=== PATIENT | female | born 1980 | race Caucasian/White ===

== ENCOUNTER 2020-08-11 12:27 | Outpatient (CLI) | payer OTHER, SELFPAY ==
--- NOTE | ~2020-08-11 | US_ITS ---
EXAMINATION: US arterial ankle brachial ind DATE: 08/11/2020 13:29 INDICATION: Patient feels like legs are giving any blood flow. TECHNIQUE: Segmental pressures and plethysmographic and Doppler waveforms of the brachial and lower e xtremity arteries were obtained. COMPARISON: None. FINDINGS: Right and left brachial artery pressures of 121 mm Hg and lower-outer 27 mm Hg, respectively, are con cordant (normal difference <= 30 mmHg). The right ankle-brachial index (NATALY) is 1.13 (normal >= 0.9-1.0). The right great toe-brachial index (TBI) is 0.86 (normal >= 0.65). Arterial Doppler waveforms are triphasic. The left NATALY is 1.15. The left TBI is 0.92. Arterial Doppler waveforms are triphasic at the posterior tibial artery and biphasic at the dorsalis pedis artery. IMPRESSION: Bilateral normal NATALY and TBI Reviewed, dictated and finalized at Location A. Reviewed, dictated and finalized at location A.
--- NOTE | ~2020-08-11 | US_ITS ---
EXAMINATION: US venous doppler [facility] DATE: 08/11/2020 13:28 INDICATION: Lower limb swelling. TECHNIQUE: Grayscale ultrasound images without and with compression and Doppler ultrasound images of the bilateral lower extremity veins were obtained. COMPARISON: None. FINDINGS: The visualized portions of right common femoral vein, profunda (deep) femoral vein, femoral vein, pop liteal vein, peroneal veins, posterior tibial veins, and greater saphenous vein outflow are patent. The visualized portions of left common femoral vein, profunda femoral vein, femoral vein, popliteal v ein, peroneal veins, posterior tibial veins, and greater saphenous vein outflow are patent. IMPRESSION: 1. No deep venous thrombosis. Reviewed, dictated and finalized at location A.
[2020-08-11 15:11] LABS: Anion Gap 7 mmol/L (8-16); Blood Urea Nitrogen 14 mg/dL (7-17); Calcium 9.3 mg/dL (8.4-10.2); Carbon Dioxide 26 mmol/L (22-30); Chloride 104 mmol/L (98-107); Cholesterol 173 mg/dL (0-200); Estimated Glomerular Filt Rate 55; Glucose 74 mg/dL (65-105); HDL Direct 70 mg/dL; Potassium 3.7 mmol/L (3.4-5.0); Sodium 137 mmol/L (137-145); Triglycerides 81 mg/dL (<150)
[2020-08-11 15:22] LABS: LDL Cholesterol Direct 74 mg/dL
== END 2020-08-11 12:28 | disposition home or self-care (01) ==
LOC: ANHIMG 12:33
PROVIDERS: PCP Family Medicine; Visit Provider Nurse Practitioner Family
DX: I83.92 Asymptomatic varicose veins of left lower extremity (principal); M79.89 Other specified soft tissue disorders; R63.5 Abnormal weight gain; Z13.29 Encounter for screening for other suspected endocrine disorder; Z13.220 Encounter for screening for lipoid disorders
CPT/HCPCS: 36415; 80048; 80061; 84443; 93922; 93970

== ENCOUNTER 2021-03-03 16:46 | Outpatient (CLI) | payer OTHER, SELFPAY ==
--- NOTE | ~2021-03-03 | MM_ITS ---
EXAMINATION: MM screening sandip BI w april HISTORY: Screening mammogram TECHNIQUE: Craniocaudal and mediolateral oblique 3-D tomosynthesis images were obtained and synthetic 2-D images were generated. CAD analysis was submitted and interpreted. COMPARISON: No prior mammogram is available for comparison at this institution. BREAST PARENCHYMAL COMPOSITION: The breasts are almost entirely fatty. FINDINGS: There is no evidence of suspicious mass, calcification, or architectural distortion to sugg est malignancy in either breast. There has been no suspicious interval change. IMPRESSION: 1. No mammographic evidence of malignancy. 2. Recommend routine screening mammography in one year. BI-RADS Category 1: Negative Reviewed, dictated and finalized at location A. Y CREW
== END 2021-03-03 16:47 | disposition home or self-care (01) ==
PROVIDERS: PCP Family Medicine; Visit Provider Obstetrics & Gynecology
DX: Z12.31 Encounter for screening mammogram for malignant neoplasm of breast (principal)
CPT/HCPCS: 77063; 77067

== ENCOUNTER 2022-03-09 07:59 | Outpatient (CLI) | payer OTHER, SELFPAY ==
--- NOTE | ~2022-03-09 | MM_ITS ---
EXAMINATION: MM screening sandip BI w april HISTORY: Screening TECHNIQUE: Craniocaudal and mediolateral oblique 3-D tomosynthesis images were obtained and synthetic 2-D images were generated. CAD analysis was submitted and interpreted. COMPARISON: No prior mammogram is available for comparison at this institution. BREAST PARENCHYMAL COMPOSITION: The breasts are almost entirely fatty. FINDINGS: There is no evidence of suspicious mass, calcification, or architectural distortion to sugg est malignancy in either breast. There has been no suspicious interval change. IMPRESSION: 1. No mammographic evidence of malignancy. 2. Recommend routine screening mammography in one year. BI-RADS Category 1: Negative Reviewed, dictated and finalized at location A. E BALANCER
== END 2022-03-09 08:00 | disposition home or self-care (01) ==
PROVIDERS: PCP Family Medicine; Visit Provider Obstetrics & Gynecology
DX: Z12.31 Encounter for screening mammogram for malignant neoplasm of breast (principal)
CPT/HCPCS: 77063; 77067

== ENCOUNTER 2023-04-03 11:20 | Outpatient (CLI) | payer OTHER, SELFPAY ==
[2023-04-03 11:58] LABS: Anion Gap 7 mmol/L (8-16); Blood Urea Nitrogen 16 mg/dL (7-17); Calcium 8.8 mg/dL (8.4-10.2); Carbon Dioxide 22 mmol/L (22-30); Chloride 106 mmol/L (98-107); Cholesterol 145 mg/dL (0-200); Estimated Glomerular Filt Rate > 60; Glucose 84 mg/dL (65-110); HDL Direct 50 mg/dL; Potassium 4.1 mmol/L (3.4-5.0); Sodium 135 mmol/L (137-145); Triglycerides 120 mg/dL (<150)
[2023-04-03 12:08] LABS: LDL Cholesterol Direct 81 mg/dL
== END 2023-04-03 11:21 | disposition home or self-care (01) ==
LOC: ANHLAB 11:21
PROVIDERS: PCP Family Medicine; Visit Provider Nurse Practitioner Family
DX: Z13.220 Encounter for screening for lipoid disorders (principal); Z13.29 Encounter for screening for other suspected endocrine disorder; E55.9 Vitamin D deficiency, unspecified; Z13.1 Encounter for screening for diabetes mellitus
CPT/HCPCS: 36415; 80048; 80061; 82306; 84443

== ENCOUNTER 2023-06-18 09:06 | Outpatient (CLI) | payer OTHER, SELFPAY ==
[2023-06-18 10:12] LABS: Anion Gap 5 mmol/L (4-12); Blood Urea Nitrogen 17 mg/dL (7-17); Calcium 9.3 mg/dL (8.4-10.2); Carbon Dioxide 25 mmol/L (22-30); Chloride 106 mmol/L (98-107); Estimated Glomerular Filt Rate > 60; Glucose 82 mg/dL (65-110); Potassium 4.4 mmol/L (3.4-5.0); Sodium 136 mmol/L (137-145)
== END 2023-06-18 09:07 | disposition home or self-care (01) ==
LOC: ANHLAB 09:08
PROVIDERS: PCP Family Medicine; Visit Provider Nurse Practitioner Family
DX: E87.1 Hypo-osmolality and hyponatremia (principal)
CPT/HCPCS: 36415; 80048

== ENCOUNTER 2023-07-03 07:16 | Outpatient (CLI) | payer OTHER, SELFPAY ==
--- NOTE | ~2023-07-03 | MM_ITS ---
EXAMINATION: MM screening [facility] BI w april HISTORY: Screening TECHNIQUE: Craniocaudal and mediolateral oblique 3-D tomosynthesis images were obtained and synthetic 2-D images were generated. CAD analysis was submitted and interpreted. COMPARISON: Comparison to multiple prior studies sequentially, with oldest reviewed study dated 03/03. BREAST PARENCHYMAL COMPOSITION: Not Dense: Breast are almost entirely fatty. FINDINGS: There is a new nodular asymmetry in the upper outer quadrant of the right breast anteriorly . The left breast is stable without evidence for malignancy. IMPRESSION: 1. New nodular right breast asymmetry. 2. Additional mammographic views and possible breast ultrasound are recommended. BI-RADS Category 0: Incomplete: Needs additional imaging evaluation. Reviewed, dictated and finalized at location B. IMPRESSION: 1. New nodular right breast asymmetry. 2. Additional mammographic views and possible breast ultrasound are recommended . BI-RADS Category 0: Incomplete: Needs additional imaging evaluation.
== END 2023-07-03 07:17 | disposition home or self-care (01) ==
PROVIDERS: PCP Family Medicine; Visit Provider Obstetrics & Gynecology
DX: Z12.31 Encounter for screening mammogram for malignant neoplasm of breast (principal); N64.89 Other specified disorders of breast
CPT/HCPCS: 77063; 77067

== ENCOUNTER 2023-07-23 13:23 | Outpatient (CLI) | payer OTHER, SELFPAY ==
--- NOTE | ~2023-07-23 | MMUS_ITS ---
EXAMINATION: MM diagnostic sandip RT w april, US breast RT limited HISTORY: Follow-up right breast asymmetry TECHNIQUE: Additional 3-D tomosynthesis images of the right breast were performed and synthetic 2-D i mages were generated. CAD analysis was submitted and interpreted. High resolution Limited right breas t ultrasound was performed. COMPARISON: Comparison to multiple prior studies sequentially, with oldest reviewed study dated 03/03. BREAST PARENCHYMAL COMPOSITION: Not dense: There are scattered areas of fibroglandular density. FINDINGS: MAMMOGRAPHIC FINDINGS: There is a persistent focal asymmetry in the outer aspect of the right breast, not definitely seen on medial lateral or spot MLO views. ULTRASOUND: Limited right breast ultrasound: At 10:30, 10 cm from the nipple there is an irregular shaped [address], likely benign. At 11:00, 11 cm from the nipple, there is a slightly irregular shaped 4 mm cyst. IMPRESSION: 1. Probable benign right breast cyst at 10:30 and 11:00 positions, 10 cm from the nipple. 2. Recommend 6 month follow-up Limited right breast ultrasound and diagnostic right mammogram BI-RADS category 3, probably benign findings. Reviewed, dictated and finalized at location B. IMPRESSION: 1. Probable benign right breast cyst at 10:30 and 11:00 positions, 10 cm from t he nipple. 2. Recommend 6 month follow-up Limited right breast ultrasound and diagnostic r ight mammogram BI-RADS category 3, probably benign findings.
== END 2023-07-23 13:24 | disposition home or self-care (01) ==
LOC: ANHIMG 13:28
PROVIDERS: PCP Family Medicine; Visit Provider Obstetrics & Gynecology
DX: N64.89 Other specified disorders of breast (principal); R92.8 Other abnormal and inconclusive findings on diagnostic imaging of breast
CPT/HCPCS: 76642; 77061; 77065; G0279

== ENCOUNTER 2024-01-22 10:34 | Outpatient (CLI) | payer OTHER, SELFPAY ==
--- NOTE | ~2024-01-22 | MMUS_ITS ---
EXAMINATION: MM diagnostic sandip RT w april, US breast RT limited HISTORY: Follow-up right breast mass TECHNIQUE: Additional 3-D tomosynthesis images of the right breast were performed and synthetic 2-D i mages were generated. CAD analysis was submitted and interpreted. High resolution Limited right breas t ultrasound was performed. COMPARISON: Comparison to multiple prior studies sequentially, with oldest reviewed study dated 03/03. BREAST PARENCHYMAL COMPOSITION: Not Dense: The breasts are almost entirely fatty. FINDINGS: MAMMOGRAPHIC FINDINGS: There are no suspicious masses, calcifications or architectural distortion in the right breast to sug gest malignancy. ULTRASOUND: Limited right breast ultrasound: At 10:30, 10 cm from the nipple there is a 3 mm cyst. At 11:00, 11 c m from the nipple there is 2 mm cyst. IMPRESSION: 1. No evidence for malignancy in the right breast. Benign findings. 2. Routine yearly screening mammogram and regular clinical breast examination are recommended. BI-RADS Category 2: Benign finding(s). Reviewed, dictated and finalized at location B. ACCOUNTANT IMPRESSION: 1. No evidence for malignancy in the right breast. Benign findings. 2. Routine yearly screening mammogram and regular clinical breast examination a re recommended. BI-RADS Category 2: Benign finding(s).
== END 2024-01-22 10:35 | disposition home or self-care (01) ==
PROVIDERS: PCP Family Medicine; Visit Provider Obstetrics & Gynecology
DX: R92.8 Other abnormal and inconclusive findings on diagnostic imaging of breast (principal)
CPT/HCPCS: 76642; 77061; 77065; G0279

== ENCOUNTER 2024-04-14 08:09 | Outpatient (CLI) | payer OTHER, SELFPAY ==
--- OUTSIDE RECORDS SUMMARY | 2024-04-14 08:19 | XMS_ITS | Referral Summary ---
Author Organization [facility] Address [address] [place] [address] Care Team Providers Care Railway Patrol Officer Name Role Phone Russ Bravo MD Primary Care Provider Encounters Date Type Department Care Team Description 01/28/2024 Orders Only [facility] Medical [facility] Obstetrical Gynecology [address] [place] [address] [address] [place] [address] Chaz Becerra MD Encounter for screening mammogram for malignant neoplasm of breast (Primary Dx) 01/28/2024 Telephone [facility] Obstetrical Gynecology [address] [place] [address] [address] [place] [address] Chaz Becerra MD 01/25/2024 Telephone [facility] [address] (Third Floor) [place] [address] Deonna Solorio RN from Last 3 Months Allergies Active Allergy Reactions Criticality Noted Date Comments Penicillin V Rash Medium 08/16/2018 Medications cetirizine (ZyrTEC) 10 mg tablet 1 tablet (10 mg total) daily Active norethindrone-et hinyl estradiol-iron (Kaya Beckford 1.5, 28,) 1.5 mg-30 mcg per tabletIndication s:Well woman exam Take 1 tablet by mouth daily 84 tablet 4 2024 Active Active Problems Problem Noted Date Diagnosed Date Acute left-sided low back pain without sciatica 08/16/2018 Assessment & Plan (10/18/2018 7:35 AM CDT): Resolved, 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 Letter faxed to [phone] chapo Diez. Assessment & Plan (08/16/2018 9:05 AM CDT): Heating pad for 20 min, home stretches info printed, can use ice for pain prn. Stay off work 08/19 Social History Tobacco Use Types Packs/Day Years Used Date Smoking Tobacco: Never Smokeless Tobacco: Never Alcohol Use Standard Drinks/Week Comments Yes 0 (1 standard drink = 0.6 oz pur e alcohol) AUDIT-C Answer Date Recorded Frequency of Alcohol Consumption Monthly or less 07/26/2018 Average Number of Drinks 1 or 2 019 Frequency of Binge Drinking Never 07/07 Comments No Sex and Gender Information Value Date Recorded Sex Assigned at Not on file Legal Sex Female 12:16 AM PACKAGER AND STRAPPER Gender Identity Not on file Sexual Orientation Not on file Last Filed Vital Signs Vital Sign Reading Time Taken Comments Blood Pressure 126/60 2024 12:14 PM PACKAGER AND STRAPPER Pulse 72 10/18/2018 7:13 AM CDT Temperature 37.1 C (98.8 F) 10/18/2018 7:13 AM CDT Respiratory Rate 16 10/18/2018 7:13 AM CDT Oxygen Saturation 99% 10/18/2018 7:13 AM CDT Inhaled Oxygen Concentration - - Weight 95.7 kg (211 lb) 2024 12:14 PM PACKAGER AND STRAPPER Height 180.3 cm (5' 11 ) 2024 12:14 PM PACKAGER AND STRAPPER Body Mass Index 29.43 2024 12:14 PM PACKAGER AND STRAPPER Plan of Treatment Not on file Procedures Procedure Name Priority Date/Time Associated Diagnosis Comments PAP AND HIGH RISK HPV, REFLEX TO GENOTYPING Routine 12/26/2021 10:32 AM PACKAGER AND STRAPPER Well woman exam from Last 3 Months or Most Recently Relevant to Health Maintenance Results * Pap and High Risk HPV, reflex to Genotyping (12/26/2021 10:32 AM PACKAGER AND STRAPPER) Thin prep (Pap test) 12/26/2021 10:32 AM PACKAGER AND STRAPPER 12/27/2021 10:32 AM PACKAGER AND STRAPPER Narrative PATHOLOGY [facility] - 01/02/2022 12:54 PM PACKAGER AND STRAPPER [facility] Department of Pathology [address] [place], [place] [id number] Final Report with Addendum Note to Patients: This report may contain a detailed description of human tissue sent by a health care provider to the laboratory for pathologic evaluation. The content of this report is essential for diagnosis and may provide important critical findings. This information may be unfamiliar to patients to review without a medical professional present. It is advised that the patient review this report in the presence of a health care provider who can answer questions and explain the details. Patient Name: SAMUEL MOSER Address: [address] [place] [address] Gender: F : 1980 (Age: 41) Service: Laboratory Location: N : [id number] [facility] #: [id number] Patient Type: [facility] SPECIMEN Taken: 12/26/2021 Received: 12/27/2021 Accessioned:: 12/28/2021 Reported: 01/02/2022 Physician(s): Chaz Becerra M.D. [facility] Diagnosis: Source of Specimen: SCREENING THIN PREP IMAGED PAP w/ HPV Specimen Adequacy: - Satisfactory for evaluation; endocervical/transformation zone component present General Category: - Negative for intraepithelial lesion or malignancy SUBHASH Crowley(ASCP) Report Electronically Reviewed and Signed Out By VALERIA CrowleyASC) 01/02/2022 12:54:19Addenda: HPV Test Interpretation NEGATIVE for types 16, 18, 31, 33, 35, 39, 45, 51, 52, 56, 58, 59, 66 and 68. Test performed utilizing Gen-Probe Aptima assay. SUBHASH Rutledge(ASCP)Report Electronically Reviewed and Signed Out By SUBHASH Rutledge(ASCP) 12/30/2021 09:15:29 Specimen(s) Received: A: SCREENING THIN PREP IMAGED PAP w/ HPV Clinical History: Last Menstrual Period: 12/20/21 The Pap test is a screening test used to aid in the detection of cervical cancer and its precursors. It should not be the sole means by which malignant and premalignant lesions are diagnosed. Both false negative and false positive results may occur. It also has poor sensitivity for the detection of endometrial lesions and should not be used to evaluate suspected endometrial abnormalities. For these reasons it is most important to obtain Pap tests at regular intervals. The performance characteristics of some immunohistochemical stains, fluorescence in-situ hybridization tests and immunophenotyping by flow cytometry cited in this report (if any) were determined by the Surgical Pathology Department at [facility] as part of an ongoing it quality analyst program and in compliance with federally mandated regulations drawn from the Clinical Laboratory Improvement Act of 1988 (CLIA '88). Some of these tests rely on the use of analyte specific reagents and are subject to specific labeling requirements by the US Food and Drug Administration. Such diagnostic tests may only be performed in a facility that is certified by the Department of Health and Human Services as a high complexity laboratory under CLIA '88. The FDA has determined that such clearance or approval is not necessary. This test is used for clinical purposes. It should not be regarded as investigational or for research. Nevertheless, federal rules concerning the medical use of analyte specific reagents require that the following disclaimer be attached to the report: This test was developed and its performance characteristics determined by the Surgical Pathology Department [facility]. It has not been cleared or approved by the U. S. Food and Drug Administration. Chaz Becerra MD LAB CYTOLOGY ORDERABLES Final Result PATHOLOGY [facility] from Last 3 Months or Most Recently Relevant to Health Maintenance Insurance [employer] Address: [address] [place] [phone] [employer] Address: [facility] [id number] [place] [phone] Care Teams Railway Patrol Officer Relationship Specialty Start Date End Date Russ Bravo MD PCP - General Family Medicine 12/26/22
--- OUTSIDE RECORDS SUMMARY | 2024-04-14 08:19 | XMS_ITS | Clinical Summary ---
Author Organization [facility] at the [facility] Office [facility] Address [address] [place] [address] Care Team Providers Care Product Manager E [employer] Name Role Phone Russ Bravo MD Primary Care Provider + [phone] Allergies Active Allergy Reactions Criticality Noted Date Comments Penicillin V Rash Medium 08/16/2018 Medications cetirizine (ZyrTEC) 10 mg tablet 1 tablet (10 mg total) daily Active norethindrone-et hinyl estradiol-iron (Kaya Fe 1.5/30, 28,) 1.5 mg-30 mcg per tabletIndication s:Well woman exam Take 1 tablet by mouth daily 84 tablet 4 2024 Active Active Problems Problem Noted Date Diagnosed Date Acute left-sided low back pain without sciatica 08/16/2018 Assessment & Plan (10/18/2018 7:35 AM CDT): Resolved, 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 Letter faxed to [phone] chapo Diez. Assessment & Plan (08/16/2018 9:05 AM CDT): Heating pad for 20 min, home stretches info printed, can use ice for pain prn. Stay off work 08/19 Encounters Date Type Department Care Team Description 01/28/2024 Orders Only [facility] Obstetrical Gynecology [address] [place] [address] Chaz Becerra MD Encounter for screening mammogram for malignant neoplasm of breast (Primary Dx) 01/28/2024 Telephone [facility] Obstetrical Gynecology [address] [place] [address] Chaz Becerra MD 01/25/2024 Telephone [facility] Healthcare [address] (Third Floor) [place] [address] Deonna Solorio RN from Last 3 Months Surgical History Surgery Date Site/Laterality Comments TONSILLECTOMY Family History Medical History Relation Name Comments Breast cancer Maternal Grandmother age 60 s HTN, cervical cancer, diabetes, arthritis Other Breast cancer Paternal Grandmother age 60 s Relation Name Status Comments Father Alive Maternal Grandmother Mother Alive Other Paternal Grandmother Social History Tobacco Use Types Packs/Day Years [...] on file Legal Sex Female 12:16 AM MOLD MAKER PLASTER Gender Identity Not on file Sexual Orientation Not on file Obstetrics History Para Term AB IAB SAB Ectopic Multiple Livin g Live Births 0 0 0 0 0 0 0 0 0 0 0 Comments 11/0 Last Filed Vital Signs Vital Sign Reading Time Taken Comments Blood Pressure 126/60 2024 12:14 PM MOLD MAKER PLASTER Pulse 72 10/18/2018 7:13 AM CDT Temperature 37.1 C (98.8 F) 10/18/2018 7:13 AM CDT Respiratory Rate 16 10/18/2018 7:13 AM CDT Oxygen Saturation 99% 10/18/2018 7:13 AM CDT Inhaled Oxygen Concentration - - Weight 95.7 kg (211 lb) 2024 12:14 PM MOLD MAKER PLASTER Height 180.3 cm (5' 11 ) 2024 12:14 PM MOLD MAKER PLASTER Body Mass Index 29.43 2024 12:14 PM MOLD MAKER PLASTER Plan of Treatment Health Maintenance Due Date Last Done Comments Breast Cancer Screening-Mammogram 1980 Depression Screening 1980 Hepatitis C Screening 1980 DTaP/Tdap/Td Vaccine (1 - Tdap) 01/08/1992 Varicella Vaccines (1 of 2 - 13+ 2-dose series) 1994 Hepatitis B Screening 1999 Cervical Cancer Screening 12/26/20222021, 07/26/2018, 05/25/2015, Additional history exists Covid-19 Vaccine (3 - 2023- season) 2023 02/18/2020, 01/28/2020 Influenza Vaccine (#1) 2023 Regular Well Visit/Exam 18-64 01/06/2025 2024, 01/01/2023, 12/26/2021, Additional history exists HPV Vaccines Aged Out No longer eligi ble based on patient's age to complete this topic Pneumococcal vaccine <65 Aged Out No longer eligible based on patient's age to complete this topic Procedures Procedure Name Priority Date/Time Associated Diagnosis Comments PAP AND HIGH RISK HPV, REFLEX TO GENOTYPING Routine 12/26/2021 10:32 AM MOLD MAKER PLASTER Well woman exam from Last 3 Months or Most Recently Relevant to Health Maintenance Results * Pap and High Risk HPV, reflex to Genotyping (12/26/2021 10:32 AM MOLD MAKER PLASTER) Thin prep (Pap test) 12/26/2021 10:32 AM MOLD MAKER PLASTER 12/27/2021 10:32 AM MOLD MAKER PLASTER Narrative PATHOLOGY [facility] - 01/02/2022 12:54 PM MOLD MAKER PLASTER [facility] Department of Pathology [address] [place], [place] [id number] Final Report with Addendum Note to Patients: [...] the details. Patient Name: SAMUEL MOSER Address: [address] [place] [address] Gender: F : 1980 (Age: 41) Service: Laboratory Location: [facility] #: [id number] Patient Type: B SPECIMEN Taken: 12/26/2021 Received: 12/27/2021 Accessioned:: 12/28/2021 Reported: 01/02/2022 Physician(s): Chaz Becerra M.D. [facility] Diagnosis: Source of Specimen: SCREENING THIN PREP IMAGED PAP w/ HPV Specimen Adequacy: - Satisfactory for evaluation; endocervical/transformation zone component present General Category: - Negative for intraepithelial lesion or malignancy SUBHASH Crowley(ASCP) Report Electronically Reviewed and Signed Out By SUBHASH Crowley(ASCP) 01/02/2022 12:54:19Addenda: HPV Test Interpretation NEGATIVE for types 16, 18, 31, 33, 35, 39, 45, 51, 52, 56, 58, 59, 66 and 68. Test performed utilizing Gen-Probe Aptima assay. SUBHASH Rutledge(ASCP)Report Electronically Reviewed and Signed Out By VALERIA RutledgeASCP) 12/30/2021 09:15:29 Specimen(s) Received: A: SCREENING THIN [...] determined by the Surgical Pathology Department at [facility] as part of an ongoing corporate quality engineer program and in compliance with federally mandated [...] characteristics determined by the Surgical Pathology Department [facility]. It has not been cleared or approved by the U. S. Food and Drug Administration. Chaz Becerra MD LAB CYTOLOGY ORDERABLES Final Result PATHOLOGY [facility] from Last 3 Months or Most Recently Relevant to Health Maintenance [place] [address] [place] [address] [employer] [employer] [employer] Address: [place] [facility] [id number] [place] [address] [employer] Address: [place] [facility] [id number] [place] [phone] Care Teams Product Manager E Commerce Relationship Specialty Start Date End Date Russ Bravo MD PCP - General Family Medicine 12/26/22
[2024-04-14 08:37] LABS: Basophils Absolute Auto 0.1 K/mm3 (0.0-0.1); Basophils Percent Auto 0.8 % (0.2-1.2); Eosinophils Absolute Auto 0.2 K/mm3 (0-0.3); Eosinophils Percent Auto 1.6 % (0-4.4); Hematocrit 42.2 % (37.0-47.0); Hemoglobin 13.8 g/dL (12.0-15.0); Immature Granulocyte Absolute 0.08 K/mm3 (0.00-0.031); Immature Granulocyte Percent A 0.8 % (0-0.5); Lymphocytes Absolute Auto 3.29 K/mm3 (0.9-3.2); Lymphocytes Percent Auto 31.9 % (18.3-44.2); Mean Corpuscular HGB Conc 32.7 g/dl (32-36); Mean Corpuscular Hemoglobin 27.3 pg (26-34); Mean Corpuscular Volume 83.6 fl (80-100); Monocytes Absolute Auto 0.6 K/mm3 (0.1-0.6); Monocytes Percent Auto 5.9 % (2.6-8.5); Neutrophils Absolute Auto 6.1 K/mm3 (1.3-6.7); Platelet Count Result 254 k/mm3 (150-375); Red Blood Count 5.05 M/mm3 (4.2-5.4); White Blood Count 10.3 K/mm3 (4.5-10.0)
[2024-04-14 08:54] LABS: Alanine Aminotransferase 25 U/L (6-35); Albumin Level 3.8 g/dL (3.5-5.1); Alkaline Phosphatase 108 U/L (38-126); Anion Gap 7 mmol/L (4-12); Aspartate Amino Transferase 24 U/L (14-36); Bilirubin,Total 0.5 mg/dL (0.2-1.3); Blood Urea Nitrogen 20 mg/dL (7-17); Calcium 8.8 mg/dL (8.4-10.2); Carbon Dioxide 25 mmol/L (22-30); Chloride 106 mmol/L (98-107); Cholesterol 125 mg/dL (0-200); Estimated Glomerular Filt Rate > 60; Glucose 86 mg/dL (65-110); HDL Direct 51 mg/dL; Sodium 138 mmol/L (137-145); Triglycerides 103 mg/dL (<150)
[2024-04-14 09:07] LABS: LDL Cholesterol Direct 52 mg/dL
[2024-04-14 10:38] LABS: Vitamin D 25 Hydroxy 32.4 ng/mL
== END 2024-04-14 08:10 | disposition home or self-care (01) ==
LOC: ANHLAB 08:09
PROVIDERS: PCP Family Medicine
DX: E55.9 Vitamin D deficiency, unspecified (principal); Z13.220 Encounter for screening for lipoid disorders; Z13.1 Encounter for screening for diabetes mellitus; Z13.29 Encounter for screening for other suspected endocrine disorder; Z13.0 Encounter for screening for diseases of the blood and blood-forming organs and certain disorders involving the immune mechanism
CPT/HCPCS: 36415; 80053; 80061; 82306; 84443; 85025

== ENCOUNTER 2024-07-04 09:15 | Outpatient (CLI) | payer OTHER, SELFPAY ==
--- NOTE | ~2024-07-04 | MM_ITS ---
EXAMINATION: MM screening [facility] BI w april HISTORY: Screening TECHNIQUE: Craniocaudal and mediolateral oblique 3-D tomosynthesis images were obtained and synthetic 2-D images were generated. CAD analysis was submitted and interpreted. COMPARISON: Comparison to multiple prior studies sequentially, with oldest reviewed study dated 03/03. BREAST PARENCHYMAL COMPOSITION: Not Dense: The breasts are almost entirely fatty. FINDINGS: There is no evidence of suspicious mass, calcification, or architectural distortion to sugg est malignancy in either breast. There has been no suspicious interval change. IMPRESSION: 1. No mammographic evidence of malignancy. 2. Recommend routine screening mammography in one year. BI-RADS Category 1: Negative Reviewed, dictated and finalized at location A.
--- OUTSIDE RECORDS SUMMARY | 2024-07-04 09:21 | XMS_ITS | Clinical Summary ---
Author Organization [facility] at [facility] Address [address] [place] [address] Care Team Providers Care Tailor Garment Fitter Name Role Phone Russ Bravo MD Primary Care Provider + [phone] Allergies Active Allergy Reactions Criticality Noted Date Comments Penicillin V Rash Medium 08/16/2018 Medications cetirizine (ZyrTEC) 10 mg tablet 1 tablet (10 mg total) daily Active norethindrone-et hinyl estradiol-iron (Kaya Fe 1.530, 28,) 1.5 mg-30 mcg per tabletIndication s:Well woman exam Take 1 tablet by mouth daily 84 tablet 4 2024 Active Active Problems Problem Noted Date Diagnosed Date Acute left-sided low back pain without sciatica 08/16/2018 Assessment & Plan (10/18/2018 7:35 AM CDT): Resolved, 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 Letter faxed to [phone] chapo Diez. Assessment & Plan (08/16/2018 9:05 AM CDT): Heating pad for 20 min, home stretches info printed, can use ice for pain prn. Stay off work 08/19 Surgical History Surgery Date Site/Laterality Comments TONSILLECTOMY [...] on file Legal Sex Female 12:16 AM GLOBAL CMO Gender Identity Not on file Sexual Orientation Not on file Obstetrics History Para Term AB IAB SAB Ectopic Multiple Livin g Live Births 0 0 0 0 0 0 0 0 0 0 0 Comments Last Filed Vital Signs Vital Sign Reading Time Taken Comments Blood Pressure 126/60 2024 12:14 PM GLOBAL CMO Pulse 72 10/18/2018 7:13 AM CDT Temperature 37.1 C (98.8 F) 10/18/2018 7:13 AM CDT Respiratory Rate 16 10/18/2018 7:13 AM CDT Oxygen Saturation 99% 10/18/2018 7:13 AM CDT Inhaled Oxygen Concentration - - Weight 95.7 kg (211 lb) 2024 12:14 PM GLOBAL CMO Height 180.3 cm (5' 11) 2024 12:14 PM GLOBAL CMO Body Mass Index 29.43 2024 12:14 PM GLOBAL CMO Plan of Treatment Health Maintenance Due Date Last Done Comments Breast Cancer Screening-Mammogram 1980 Depression Screening 1980 Hepatitis C Screening 1980 DTaP/Tdap/Td Vaccine (1 - Tdap) 01/08/1992 Varicella Vaccines (1 of 2 - 13+ 2-dose series) 1994 Hepatitis B Screening 1999 Cervical Cancer Screening 12/26/20222021, 07/26/2018, 05/25/2015, Additional history exists Covid-19 Vaccine ( season) 2023 02/18/2020, 01/28/2020 Influenza Vaccine (Season Ended) 2024 Regular Well Visit/Exam 18-64 01/06/2025 2024, 01/01/2023, 12/26/2021, Additional history exists HPV Vaccines Aged Out No longer eligi ble based on patient's age to complete this topic Pneumococcal vaccine <65 Aged Out No longer eligible based on patient's age to complete this topic Procedures Procedure Name Priority Date/Time Associated Diagnosis Comments PAP AND HIGH RISK HPV, REFLEX TO GENOTYPING Routine 12/26/2021 10:32 AM GLOBAL CMO Well woman exam from Last 3 Months or Most Recently Relevant to Health Maintenance Results * Pap and High Risk HPV, reflex to Genotyping (12/26/2021 10:32 AM GLOBAL CMO) Thin prep (Pap test) 12/26/2021 10:32 AM GLOBAL CMO 12/27/2021 10:32 AM GLOBAL CMO Narrative PATHOLOGY [facility] - 01/02/2022 12:54 PM GLOBAL CMO [facility] Department of Pathology [address] [place], [place] [id number] Final Report with Addendum Note to Patients: [...] the details. Patient Name: SAMUEL MOSER Address: [address] [place] [address] Gender: F : 1980 (Age: 41) Service: Laboratory Location: N : [id number] [facility] #: [id number] Patient Type: [facility] SPECIMEN Taken: 12/26/2021 Received: 12/27/2021 Accessioned:: 12/28/2021 Reported: 01/02/2022 Physician(s): Chaz Becerra M.D. [facility] Diagnosis: Source of Specimen: SCREENING THIN PREP IMAGED PAP w/ HPV Specimen Adequacy: - Satisfactory for evaluation; endocervical/transformation zone component present General Category: - Negative for intraepithelial lesion or malignancy Enma Swain, CT(ASCP) Report Electronically Reviewed and Signed Out By VALERIA CrowleyASCP) 01/02/2022 12:54:19Addenda: HPV Test Interpretation NEGATIVE for [...] determined by the Surgical Pathology Department at [facility] as part of an ongoing director supplier quality program and in compliance with federally mandated [...] characteristics determined by the Surgical Pathology Department [facility]. It has not been cleared or approved by the U. S. Food and Drug Administration. Chaz Becerra MD LAB CYTOLOGY ORDERABLES Final Result PATHOLOGY [facility] from Last 3 Months or Most Recently Relevant to Health Maintenance Insurance [employer] Address[address] [place] [address] [employer] [employer] Address: [facility] [id number] [place] [address] Care Teams Tailor Garment Fitter Relationship Specialty Start Date End Date Russ Bravo MD PCP - General Family Medicine 12/26/22
--- OUTSIDE RECORDS SUMMARY | 2024-07-04 09:21 | XMS_ITS | Referral Summary ---
Author Organization [facility] at [facility] Address [address] [place] [address] Care Team Providers Care Ssrs Developer Name Role Phone Russ Bravo MD Primary Care Provider + [phone] Allergies Active Allergy Reactions Criticality Noted Date [...] restrictions as a nurse. Letter faxed to [phone] chapo Diez. Assessment & Plan (08/16/2018 9:05 [...] on file Legal Sex Female 12:16 AM FUR COAT SEWER Gender Identity Not on file Sexual Orientation Not on file Last Filed Vital Signs Vital Sign Reading Time Taken Comments Blood Pressure 126/60 2024 12:14 PM FUR COAT SEWER Pulse 72 10/18/2018 7:13 AM CDT Temperature 37.1 C (98.8 F) 10/18/2018 7:13 AM CDT Respiratory Rate 16 10/18/2018 7:13 AM CDT Oxygen Saturation 99% 10/18/2018 7:13 AM CDT Inhaled Oxygen Concentration - - Weight 95.7 kg (211 lb) 2024 12:14 PM FUR COAT SEWER Height 180.3 cm (5' 11) 2024 12:14 PM FUR COAT SEWER Body Mass Index 29.43 2024 12:14 PM FUR COAT SEWER Plan of Treatment Not on file Procedures Procedure Name Priority Date/Time Associated Diagnosis Comments PAP AND HIGH RISK HPV, REFLEX TO GENOTYPING Routine 12/26/2021 10:32 AM FUR COAT SEWER Well woman exam from Last 3 Months or Most Recently Relevant to Health Maintenance Results * Pap and High Risk HPV, reflex to Genotyping (12/26/2021 10:32 AM FUR COAT SEWER) Thin prep (Pap test) 12/26/2021 10:32 AM FUR COAT SEWER 12/27/2021 10:32 AM FUR COAT SEWER Narrative PATHOLOGY [facility] - 01/02/2022 12:54 PM FUR COAT SEWER [facility] Department of Pathology [address] [place] [id number] Final Report with Addendum Note to Patients: [...] the details. Patient Name: SAMUEL MOSER Address: [address] [place] [address] Gender: F : 1980 (Age: 41) Service: Laboratory Location: Hospital #: [id number] Patient Type: [facility] SPECIMEN Taken: 12/26/2021 Received: 12/27/2021 Accessioned:: 12/28/2021 Reported: 01/02/2022 Physician(s): Chaz Becerra M.D. [facility] Diagnosis: Source of Specimen: SCREENING THIN [...] determined by the Surgical Pathology Department at [facility] as part of an ongoing air quality technician program and in compliance with federally mandated [...] characteristics determined by the Surgical Pathology Department [facility]. It has not been cleared or approved by the U. S. Food and Drug Administration. Chaz Becerra MD LAB CYTOLOGY ORDERABLES Final Result Performing Organization Address City/State/[facility] [[email or web address]] Co de Phone Number PATHOLOGY [facility] from Last 3 Months or Most Recently Relevant to Health Maintenance [place] [address] [place] [address] [employer] [employer] Address[facility] [id number] [place] [address] [employer] [facility] [employer] Address: [facility] [id number] [place] [address] Care Teams Ssrs Developer Relationship Specialty Start Date End Date Russ Bravo MD PCP - General Family Medicine 12/26/22
== END 2024-07-04 09:16 | disposition home or self-care (01) ==
LOC: ANHIMG 09:17
PROVIDERS: PCP Family Medicine; Visit Provider Obstetrics & Gynecology
DX: Z12.31 Encounter for screening mammogram for malignant neoplasm of breast (principal)
CPT/HCPCS: 77063; 77067